=== PATIENT | male | born 1970 | race Caucasian/White ===

== ENCOUNTER 2017-12-16 12:09 | Day surgery (SDC) | payer OTHER ==
[~2017-12-16] VITALS: Ht 182.9 cm; Wt 98.9 kg
--- NOTE | 2017-12-16 15:16 | NUR ---
12/16/17 1516 Richa Coombs 1503 PT ARRIVED IN PACU SLEEPY WITH NO C/O'S. 1510 DR AT BEDSIDE TALKING TO PT. 1514 OXYGEN REMOVED. SATS 97% ON RA.
--- NOTE | 2017-12-17 08:49 | OR ---
[facility] [address] [place], [place] [address] Signed DATE OF OPERATION: 12/16/2017 SURGEON: Valorie Brooks MD PREOPERATIVE DIAGNOSES: 1. Episodic rectal bleeding. 2. Family history of colon cancer in grandfather at age 39 and polyps in mother. POSTOPERATIVE DIAGNOSIS: Polyps x5. PROCEDURE: Total colonoscopy to cecum with snare polypectomy x3 and cold morcellation polypectomy x2. ANESTHESIA: Intravenous sedation, fentanyl 150 mcg, and Versed 9 mg. INDICATION: This 47-year-old white man is patient of Dr. Daly. He works for [employer]. He has had episodic diarrhea and occasional rectal bleeding long-standing. He does have family history of colon cancer in a grandfather at age 39, who had recurrent disease. Additionally, his mother is noted to have polyps. He is admitted at this time to undergo colonoscopy understanding risks of bleeding, infection, and perforation. FINDINGS: The prep was excellent. Complete colonoscopy was undertaken to the cecum without question. There were five polyps in total that were excised, two are relatively large greater than a cm in size. The others were smaller. DESCRIPTION OF PROCEDURE: The patient was brought to the endoscopy suite and placed in lateral decubitus position, given intravenous sedation to the point of slurred speech and nystagmus. Digital rectal examination was normal. An Olympus video colonoscope was passed in the rectum and manipulated throughout the colon noting a relatively large polyp in the right transverse colon. The scope was advanced beyond this ultimately to the cecum. The ileocecal valve and appendiceal orifice were normal. Photographs were taken. Scope was carefully withdrawn. At the hepatic flexure, a small polyp that was adenomatous in appearance was noted. This was Electronically Signed By: VALORIE BROOKS MD 12/17/17 0849 PATIENT NAME: KAYCE SHERMAN JR OPERATIVE REPORT DATE OF : 66 REPORT #: [id number] PHYSICIAN: VALORIE BROOKS MD PCP: ELIZABETH DALY MD REPORT IS CONFIDENTIAL AND NOT TO BE RELEASED WITHOUT AUTHORIZATION [facility] [address] [place], [place] [address] Signed excised with cold morcellation technique. Another polyp somewhat large was excised with cold snare technique. Both were passed for pathology. Scope was withdrawn in the right transverse colon. There was a small polyp that was sessile. This was excised with hot snare polypectomy technique and another few cm away similarly excised. Both were greater than a cm in size. The polyps were noted to be displaced distalward and were not readily visible at that moment. The scope was withdrawn. In the left transverse colon, the other small sessile polyp was noted. This was excised with hot snare technique without problem. Further withdrawal of scope showed all of the polyps that had not yet been retrieved and they were gathered with a Jones net and withdrawn upon withdrawal of the scope. The polyps that were excised were offloaded. The scope reintroduced and passed up to the transverse colon once again and careful withdrawal of scope showed no additional polyps. Retroflexed view was normal. Scope was removed. The patient was taken to recovery room in good condition. CONCLUDING DIAGNOSIS: Polyps x5. PLAN: Recommend repeat colonoscopy in one year due to the number of polyps and configuration of polyps and family history. If at that time there are no polyps, then he can go several years without surveillance colonoscopy. Valorie Brooks MD JM/MODL /[id number] cc: Elizabeth Daly MD Copies: ELIZABETH DALY MD ~ Electronically Signed By: VALORIE BROOKS MD 12/17/17 0849 PATIENT NAME: DORIFLAKITOTYLER BYRDKAYCE PAUL OPERATIVE REPORT DATE OF : 66 REPORT #: [id number] PHYSICIAN: VALORIE BROOKS MD PCP: ELIZABETH DALY MD REPORT IS CONFIDENTIAL AND NOT TO BE RELEASED WITHOUT AUTHORIZATION
== END 2017-12-16 15:40 | disposition home or self-care (01) ==
LOC: DS 12:09 → OPS 12:09
PROVIDERS: Surgery
PROC: 0DBL8ZZ Excision of Transverse Colon, Via Natural or Artificial Opening Endoscopic (ICD-10-PCS; principal; 2017-12-16 13:00)
DX: D12.3 Benign neoplasm of transverse colon (principal); Z80.0 Family history of malignant neoplasm of digestive organs
CPT/HCPCS: 99153; G0500; J2250; J3010; J7120

== ENCOUNTER 2019-06-11 15:31 | Emergency (ER) | payer OTHER ==
[~2019-06-11] VITALS: Ht 182.9 cm; Wt 98.9 kg
--- OUTSIDE RECORDS SUMMARY | ~2019-06-11 | XMS | Clinical Summary ---
Demographics + + + | Address | [address] | | | [place] [address] | + + + | Home Phone | | + + + | Preferred Language | Unknown | + + + | Marital Status | | + + + | Anabaptism Affiliation | Unknown | + + + | Race | Unknown | + + + | Ethnic Group | Unknown | + + + Author + + + | Author | [facility] | | | and [place] | + + + | Organization | [facility] | | | and [place] | + + + | Address | Unknown | + + + | Phone | Unavailable | + + + Support + + +---------+ + | Name | Relationship | Address | Phone | + + +---------+ + | Susie Stewart | ECON | Unknown | | + + +---------+ + Care Team Providers + +------+ + | Care Health Data Administrator Name | Role | Phone | + +------+ + | Nikki Mathews MD | PCP | | + +------+ + Allergies No Known Allergies Medications + + + +---------+------+------+-------+ | Medication | Sig | Dispensed | Refills | Star | End | Statu | | | | | | t | Date | s | | | | | | Date | | | + + + +---------+------+------+-------+ | mupirocin | Apply topically 3 | | 0 | 01/2 | | Activ | | (BACTROBAN) 2% | times daily. | | | 0/20 | | e | | ointment | | | | 15 | | | + + + +---------+------+------+-------+ Active Problems Not on file Encounters +--------+ + + + + | Date | Type | Specialty | Care Team | Description | +--------+ + + + + | 05/24/ | Abstract | Physical Medicine | Provider, | | | 2020 | | and Rehabilitation | [facility] | | +--------+ + + + + from Last 3 Months Family History + + +------+ + | Medical History | Relation | Name | Comments | + + +------+ + | Hypertension | Father | | | + + +------+ + | Other (see comment) | Father | | Menniere's Disease, Vertigo | + + +------+ + | Stroke | Father | | | + + +------+ + | Prostate cancer | Maternal | | | | | Grandfath | | | | | er | | | + + +------+ + | No known problems | Maternal | | | | | Grandmoth | | | | | er | | | + + +------+ + | Colon polyps | Mother | | | + + +------+ + | Colon cancer | Paternal | | | | | Grandfath | | | | | er | | | + + +------+ + | Diabetes | Paternal | | | | | Grandfath | | | | | er | | | + + +------+ + | No known problems | Paternal | | | | | Grandmoth | | | | | er | | | + + +------+ + | No known problems | Sister | | | + + +------+ + + +------+--------+ + | Relation | Name | Status | Comments | + +------+--------+ + | Father | | | | + +------+--------+ + | Maternal Grandfather | | | | + +------+--------+ + | Maternal Grandmother | | | | + +------+--------+ + | Mother | | | | + +------+--------+ + | Paternal Grandfather | | | | + +------+--------+ + | Paternal Grandmother | | | | + +------+--------+ + | Sister | | Alive | | + +------+--------+ + Social History + +-------+ +--------+------+ | Tobacco Use | Types | Packs/Day | Years | Date | | | | | Used | | + +-------+ +--------+------+ | Never Smoker | | | | | + +-------+ +--------+------+ + +---+---+---+ | Smokeless Tobacco: | | | | | Never Used | | | | + +---+---+---+ + + + + + | Alcohol Use | Drinks/Week | oz/Week | Comments | + + + + + | Yes | 1-2 Cans of beer | 1.0 - 2.0 | Occasionally | + + + + + + + + | Sex Assigned at | Date Recorded | | | | + + + | Not on file | | + + + + + + + | Job Start Date | Occupation | Industry | + + + + | Not on file | Not on file | Not on file | + + + + + + + + | Travel History | Travel Start | Travel End | + + + + + + | No recent travel history available. | + + Last Filed Vital Signs Not on file Plan of Treatment + + + + + | Health Maintenance | Due Date | Last Done | Comments | + + + + + | Vaccine: | | | | | Dtap/Tdap/Td (1 - | 9 | | | | Tdap) | | | | + + + + + | Vaccine: Zoster (1 | | | | | of 2) | 8 | | | + + + + + | Vaccine: Influenza | | | | | (Season Ended) | 0 | | | + + + + + | Colorectal Cancer | | 12/16/2017 | | | Screening | 8 | | | | (Colonoscopy) | | | | + + + + + Results Not on filefrom Last 3 Months Insurance +---------+--------+ +--------+ + +--------+ | Payer | Benefi | Subscriber | Effect | Phone | Address | Type | | | t Plan | ID | roberto | | | | | | / | | Dates | | | | | | Group | | | | | | +---------+--------+ +--------+ + +--------+ | MODA | MODA | [id number] | | [phone] | [address] | PPO | | | [place] | | [phone] | | | | Y PPO | | esent | | [place], | | | | | | | | [place] [address] | | +---------+--------+ +--------+ + +--------+ | | [employer]IC[employer] | [id number] | 02/10/19 | [phone] | | Indemn | | | [address] WEST | | 18-Pre | 0 | | ity | | | HNFS | | sent | | | | +---------+--------+ +--------+ + +--------+ + +--------+ +--------+ + + | Guarantor Name | Accoun | Relation to | Date | Phone | Billing Address | | | t Type | Patient | of | | | | | | | | | | + +--------+ +--------+ + + | Antonio Franklin | Person | Self [birth year] | [address] | | | al/Fam | | 1970 | [phone] | [place] [address] | | | [place] | | | 6 (Home) | | + +--------+ +--------+ + + Advance Directives + + + + + | Type | Date Recorded | Patient | Explanation | | | | Banquet Director | | + + + + + | Power of | | | | | Drivers' Cash Clerk | | | | + + + + + | Advance | | | | | Directive | | | | + + + + +"
--- OUTSIDE RECORDS SUMMARY | ~2019-06-11 | XMS | Encounter Summary ---
Demographics + + + | Address | [address] | | | [place] [address] | + + + | Home Phone | | + + + | Preferred Language | Unknown | + + + | Marital Status | | + + + | Bahai Affiliation | Unknown | + + + | Race | Unknown | + + + | Ethnic Group | Unknown | + + + Author + + + | Author | [facility] | | | and [place] | + + + | Organization | [facility] | | | and [...] Team Providers + +------+ + | Care Bat Boy/Girl Name | Role | Phone | + +------+ + | Nikki Mathwes MD | PCP | | + +------+ + Encounter Details +--------+ + + + + | Date | Type | Department | Care Team | Description | +--------+ + + + + | 05/24/ | Abstract | [facility] | Provider, | | | 2019 | | PH[address]SIATRY [address] | [address] [address] | | | | | [address] | [place] | | | | | [place] | [place] [address] | | | | | [phone] | | | | | | [phone] | | | +--------+ + + + + Social History + +-------+ +--------+------+ | [...] recent travel history available. | + + documented as of this encounter Plan of Treatment Not on filedocumented as of this encounter Visit Diagnoses Not on filedocumented in this encounter"
--- OUTSIDE RECORDS SUMMARY | ~2019-06-11 | XMS | Encounter Summary ---
Demographics + + + | Address | [address] | | | [place] [address] | + + + | Home Phone | | + + + | Preferred Language | Unknown | + + + | Marital Status | | + + + | Anabaptist Affiliation | Unknown | + + + | Race | Unknown | + + + | Ethnic Group | Unknown | + + + Author + + + | Author | [facility] | | | and [place] | + + + | Organization | [facility] | | | and [...] Team Providers + +------+ + | Care Respiratory Therapy Director Name | Role | Phone | + [...] | PH[address]SIATRY [address] | [address] | | | | | [address] | [place] | | | | | [place] | [place] [address] | | | | | [phone] | | | | | | [phone] | | | +--------+ + + + [...]
--- OUTSIDE RECORDS SUMMARY | ~2019-06-11 | XMS | Clinical Summary ---
Demographics + + + | Address | [address] | | | [place] [address] | + + + | Home Phone | | + + + | Preferred Language | Unknown | + + + | Marital Status | | + + + | Latter-Day Affiliation | Unknown | + + + | Race | Unknown | + + + | Ethnic Group | Unknown | + + + Author + + + | Author | [facility] | | | and [place] | + + + | Organization | [facility] | | | and [place] | [...] Team Providers + +------+ + | Care Executive Candidate Developer Name | Role | Phone | + [...] + +--------+ | MODA | MODA | [id number] | | [phone] | [address] | PPO | | | [place] | | [address] | [phone] | | | | Y PPO | | esent | | [place], | | | | | | | | [place] [address] | | +---------+--------+ +--------+ + +--------+ | | TRICAR | [id number] | 02/10/19 | [phone] | | Indemn [...] | 1970 | [phone] | [place] [address] | | | [place] | | | 6 (Home) | | + +--------+ +--------+ + + Advance Directives + + + + + | Type | Date Recorded | Patient | Explanation | | | | Rubber Mill Operator | | + + + + + | Power of | | | | | Transformation Lead | | | | + + + + + | Advance | | | | | Directive | | | | + + + + +"
[2019-06-11] MEDS ORDERED: NORCO 7.5-3251 EACH PO (16:59)
== END 2019-06-11 17:41 | disposition home or self-care (01) ==
LOC: ED 15:31
DX: S52.502A Unspecified fracture of the lower end of left radius, initial encounter for closed fracture (principal); S52.612A Displaced fracture of left ulna styloid process, initial encounter for closed fracture; S93.401A Sprain of unspecified ligament of right ankle, initial encounter; W10.9XXA Fall (on) (from) unspecified stairs and steps, initial encounter
CPT/HCPCS: 29125; 73110; 73610; 99283-25; A9270

== ENCOUNTER 2020-08-23 18:16 | Emergency (ER) | payer BC ==
[~2020-08-23] VITALS: Ht 182.9 cm; Wt 97.5 kg
[~2020-08-23 18:16] MED LIST: NORCO 7.5-3251 EACH PO
[2020-08-23] MEDS ORDERED: VITAMIN C500 M1 PO (18:30)
[2020-08-23] MEDS ORDERED: VITAMIN D310 MC4 (18:30)
[2020-08-23] MEDS ORDERED: ELDERBERRY-VIT1 EACH PO (18:31)
[2020-08-23] MEDS ORDERED: ZINC50 M1 PO (18:31)
[2020-08-23] MEDS ORDERED: HYDROXYCHLOROQ200 MG PO (19:11)
[2020-08-23] MEDS ORDERED: PROVENTIL HFA6.7 GM INH (20:30)
[2020-08-23] MEDS ORDERED: ZOFRAN4 MG PO (20:30)
--- NOTE | 2020-08-24 10:29 | EKG ---
[facility] [address] [facility] [place], [place] [address] Signed Normal sinus rhythm Prolonged QT Abnormal ECG No previous ECGs available Confirmed by SREEDHAR HU DO ([id number]) on 08/24/2020 10:29:03 AM Electronically Signed By: SREEDHAR HU DO 08/24/20 1029 PATIENT NAME: DORICELESTINAKAYCE JR Electrocardiogram DATE OF : 66 PHYSICIAN: SREEDHAR HU DO REPORT #: [id number] REPORT IS CONFIDENTIAL AND NOT TO BE RELEASED WITHOUT AUTHORIZATION
== END 2020-08-23 21:02 | disposition home or self-care (01) ==
LOC: ED 18:16
DX: U07.1 COVID-19 (principal); J12.82 Pneumonia due to coronavirus disease 2019; Z79.899 Other long term (current) drug therapy
CPT/HCPCS: 71045; 80053; 83735; 84484; 85025; 93005; 93010; 94640; 99285-25

== ENCOUNTER 2023-03-18 09:18 | Day surgery (SDC) | payer OTHER ==
[~2023-03-18] VITALS: Ht 182.9 cm; Wt 100.9 kg
[~2023-03-18 09:18] MED LIST changes: +ELDERBERRY-VIT1 EACH PO; +HYDROXYCHLOROQ200 MG PO; +IBLOOD GLUCOSE TEST STRIP 1 EA TEST VI PRN; +LACTATED RINGER'S 1,000 ML IV SCH; +LIDOCAINE HCL 1% 5 ML SDV INJ ONE; +MIDAZOLAM HCL 5 MG/5 ML VIAL IV PRN; +PREDNISONE20 MG PO; +PROVENTIL HFA6.7 GM INH; +VITAMIN C500 M1 PO; +VITAMIN D310 MC4; +ZINC50 M1 PO; +ZOFRAN4 MG PO; +fentaNYL citrate 100 MCG/2 ML VIAL IV PRN
[2023-03-18 10:21] VITALS: BP 130/90
[2023-03-18] MEDS ORDERED: MIDAZOLAM HCL 5 MG/5 ML VIAL ONE (10:33)
[2023-03-18] MEDS ORDERED: fentaNYL citrate 100 MCG/2 ML VIAL ONE (10:33)
[2023-03-18] MEDS ORDERED: CEFAZOLIN SODIUM 2 GM/20 ML SYR ONE (10:46)
[2023-03-18] MEDS ORDERED: CEFAZOLIN SODIUM 2 GM/20 ML SYR IV SCH (10:50)
--- NOTE | 2023-03-18 11:48 | NUR ---
03/18/23 1148 Sheets,Sangeeta 1139 PT ARRIVED TO PACU ON 3L VIA NC, PT AWAKE TALKING TO RN. PT ENCOURAGED TO PASS GAS/AIR. PT REPORTS SOME GAS PAIN AND EDUCATION GIVEN.
[2023-03-18 12:18] VITALS: BP 138/97
--- NOTE | 2023-03-18 15:37 | OR ---
[facility] [address] [place], [place] [address] Signed DATE OF OPERATION: 03/18/2023 SURGEON: Jamshid Hopkins MD PREOPERATIVE DIAGNOSES: 1. Chronic intermittent rectal bleeding and diarrhea. 2. Maternal grandfather with colon cancer. 3. Mother with colon polyps. 4. Paternal grandfather with colon cancer at age 39. 5. Personal history of five tubular adenomatous polyps removed in 2018 at the age of 47, two of which were greater than 10 mm. POSTOPERATIVE DIAGNOSES: 1. 5 mm sessile polyp in hepatic flexure. 2. 7 mm pedunculated polyp in hepatic flexure (snare). 3. Base of hepatic flexure polyp. 4. 6 mm polyp at 68 cm in left colon (snare). 5. 8 mm pedunculated polyp at 38 cm in left colon (snare). 6. A 15 x 20 mm pedunculated polyp at 32 cm in sigmoid colon (tattoo, clipped x1). 7. Minimal internal hemorrhoids. PROCEDURES: Colonoscopy with snare polypectomy, hot biopsy, injection of tattoo and clipping x1. ESTIMATED BLOOD LOSS: Minimal. INDICATIONS: Grey is a 53-year-old gentleman, asked to see me for a followup colonoscopy. We know his maternal grandfather had colon cancer. Mother had colonic polyps. His paternal grandfather had colon cancer at age 39. Grey underwent his initial colonoscopy in 2018 at he age of 47 [address] Falk. Five tubular adenomatous polyps were removed. Two of those polyps were greater than 10 mm. He also has chronic intermittent rectal bleeding and some diarrhea. Dr. Falk asked him to come back in one year. However, he was sidetracked by SMITHA and later he had to have the mitral valve replaced at [facility] up in [place], [place]. That valve also contains metal. Therefore, we did give him some Ancef today before we started. We asked Grey and his to check in with his heart surgeon to see whether or not he needs to continue prophylactic antibiotics. He had done well with Versed and fentanyl in the past. In the office, I gave him a pamphlet on colonoscopy. We had reviewed the nature of the test. There is Electronically Signed By: JAMSHID HOPKINS MD 03/18/23 1537 PATIENT NAME: GREY SHERMAN JR OPERATIVE REPORT DATE OF : 66 REPORT #: [id number] PHYSICIAN: JAMSHID HOPKINS MD PCP: NO PRIMARY CARE PHYSICIAN REPORT IS CONFIDENTIAL AND NOT TO BE RELEASED WITHOUT AUTHORIZATION [facility] [address] [place], [place] [address] Signed risk including, but not limited to gas bloating, crampy abdominal pain, bleeding, perforation requiring surgery, and missed diagnosis. We also reviewed the written instructions for the bowel prep line by line. Amazingly, he takes no medications. He also understands the need for IV conscious sedation. He had expressed understanding and wished to proceed. DESCRIPTION OF PROCEDURE: Grey was taken into our endoscopy suite and placed in the left lateral decubitus position. He was given a total of 8 mg of Versed and 175 mcg of fentanyl to cover the case. He was given 2 g of Ancef before we started because of mitral valve replacement surgery. A digital rectal exam was performed. There were no external hemorrhoids. He had good sphincter tone. There were really no masses. The adult colonoscope was introduced, advanced all around into the cecum under direct visualization of the camera without difficulty. It took just a little bit of abdominal compression in order to get the scope directly into the cecum itself. His prep was quite excellent. We could easily see the appendiceal orifice and the ileocecal valve. The scope was then slowly withdrawn. We took pictures throughout for photodocumentation. The above-mentioned polyps were all removed as stated above. Most were divided with the snare and trap. He had a fairly large polyp back at 32 cm. It bled just a little bit at the base. We cauterized around the base, injected tattoo underneath the base and then we clipped the base directly with good hemostasis. We did not see any diverticulosis. The rectum was unremarkable. Upon retroflexion of the scope, he had very minimal internal hemorrhoid tissue. After this, the gas was suctioned out and the colonoscope removed. Grey tolerated the procedure quite well. RECOMMENDATIONS: I will see Grey back in my office in 7 to 14 days to review his results. He should consider a shorter interval in the future, say 1 to 3 years depending on pathology results. Jamshid Hopkins MD ALB/MODL /[id number] cc: [facility] Electronically Signed By: JAMSHID HOPKINS MD 03/18/23 1537 PATIENT NAME: GREY SHERMAN PAUL OPERATIVE REPORT DATE OF : 66 REPORT #: [id number] PHYSICIAN: JAMSHID HOPKINS MD PCP: NO PRIMARY CARE PHYSICIAN REPORT IS CONFIDENTIAL AND NOT TO BE RELEASED WITHOUT AUTHORIZATION [address] [place], [place] [address] Signed Jamshid Hopkins MD Copies: JAMSHID HOPKINS MD ~ Electronically Signed By: JAMSHID HOPKINS MD 03/18/23 1537 PATIENT NAME: DORICELESTINAGREY JR OPERATIVE REPORT DATE OF : 66 REPORT #: [id number] PHYSICIAN: JAMSHID HOPKINS MD PCP: NO PRIMARY CARE PHYSICIAN REPORT IS CONFIDENTIAL AND NOT TO BE RELEASED WITHOUT AUTHORIZATION
--- NOTE | 2023-03-20 16:52 | PATH ---
[facility] [address] [place], [place] [address] Signed SPECIMEN(S): A HEPATIC FLEXURE COLON POLYP AT 78 CM SPECIMEN(S): B HEPATIC FLEXURE COLON POLYP #2 SPECIMEN(S): C HEPATIC FLEXURE COLON BASE POLYP SPECIMEN(S): D DESCENDING COLON POLYP AT 68 CM SPECIMEN(S): E DESCENDING COLON POLYP AT 38 CM SPECIMEN(S): F SIGMOID POLYP AT 32 CM SPECIMEN SOURCE: A. HEPATIC FLEXURE COLON POLYP AT 78 CM B. HEPATIC FLEXURE COLON POLYP #2 C. HEPATIC FLEXURE COLON BASE POLYP D. DESCENDING COLON POLYP AT 68 CM E. DESCENDING COLON POLYP AT 38 CM F. SIGMOID POLYP AT 32 CM CLINICAL HISTORY: History of polyp-family history, colon cancer, chronic diarrhea FINAL PATHOLOGIC DIAGNOSIS: A. Hepatic flexure colon polyp at 78 cm: - Tubular adenoma (two fragments). B. Hepatic flexure colon polyp No. 2: - Tubular adenoma (three fragments). C. Hepatic flexure colon base polyp: - Tubular adenoma (one fragment). D. Descending colon polyp at 68 cm: - Tubular adenoma (one fragment). E. Descending colon polyp at 38 cm: - Tubulovillous adenoma (three fragments). F. Sigmoid polyp at 32 cm: - Tubulovillous adenoma extending to the inked polyp stalk base. JVR:clv MICROSCOPIC EXAMINATION: Histologic sections of all submitted blocks are examined by light microscopy. These findings, together with the gross examination, support the pathologic diagnosis. GROSS DESCRIPTION: A. The specimen, labeled and designated "Venuaulnier, hepatic flexure colon polyp at 78 cm, #1," is received in formalin and consists of two cruz soft PATIENT NAME: KAYCE SHERMAN JR PATHOLOGY DATE OF : 66 REPORT #: [id number] PHYSICIAN: [facility] PATHOLOGY PCP: NO PRIMARY CARE PHYSICIAN REPORT IS CONFIDENTIAL AND NOT TO BE RELEASED WITHOUT AUTHORIZATION [facility] [address] [place], [place] [address] Signed tissue fragments, ranging from 0.2-0.3 cm. Entirely submitted in (A1). B. The specimen, labeled and designated "Desaulnier, hepatic flexure colon polyp #2," is received in formalin and consists of three cruz soft tissue fragments, ranging from 0.5-0.6 cm. Entirely submitted in (B1). C. The specimen, labeled and designated "Desaulnier, hepatic flexure colon base polyp," is received in formalin and consists of one cruz soft tissue fragment, 0.3 cm. Entirely submitted in (C1). D. The specimen, labeled and designated "Desaulnier, descending colon polyp at 68 cm," is received in formalin and consists of one cruz soft tissue fragment, 0.2 cm. Entirely submitted in (D1). E. The specimen, labeled and designated "Desaulnier, descending colon polyp at 38 cm," is received in formalin and consists of two cruz soft tissue fragments, ranging from 0.5-0.7 cm. Entirely submitted in (E1). F. The specimen, labeled and designated "Desaulnier, sigmoid polyp at 32 cm," is received in formalin and consists of a bosselated polyp of red-brown soft tissue (2.2 x 1.3 x 1.3 cm). The resection margin is inked blue, and the tissue is trisected to reveal red-brown to cruz soft cut surfaces. The specimen is submitted entirely in cassette (F1-F2). VB (under the direct supervision of a pathologist) The Gross Description was prepared using a voice recognition system. The report was reviewed for accuracy; however, sound-alike word errors, addition and/or deletions may occur. If there is any question about this report, please contact Client Services. PERFORMING LABORATORY: Technical component was performed by [facility], [address] [place] [id number] (CLIA# [id number]). Professional interpretation was performed by [facility], [address] [place] [id number] (CLIA#: [id number]). Diagnostician: Tino Deluna MD Pathologist Electronically Signed 03/20/2023 Copies: PATIENT NAME: KAYCE SHERMAN PATHOLOGY DATE OF : 66 REPORT #: [id number] PHYSICIAN: [facility] PCP: NO PRIMARY CARE PHYSICIAN REPORT IS CONFIDENTIAL AND NOT TO BE RELEASED WITHOUT AUTHORIZATION [address] [address] Signed ~ PATIENT NAME: KAYCE SHERMAN JR PATHOLOGY DATE OF : 66 REPORT #: [id number] PHYSICIAN: SERGEY PATHOLOGY PCP: NO PRIMARY CARE PHYSICIAN REPORT IS CONFIDENTIAL AND NOT TO BE RELEASED WITHOUT AUTHORIZATION
== END 2023-03-18 12:32 | disposition home or self-care (01) ==
LOC: DS 09:18
PROVIDERS: ATTEND Colon & Rectal Surgery
PROC: 0DBL8ZZ Excision of Transverse Colon, Via Natural or Artificial Opening Endoscopic (ICD-10-PCS; 2023-03-18)
PROC: 0DBN8ZZ Excision of Sigmoid Colon, Via Natural or Artificial Opening Endoscopic (ICD-10-PCS; 2023-03-18)
PROC: 0DBG8ZZ Excision of Left Large Intestine, Via Natural or Artificial Opening Endoscopic (ICD-10-PCS; principal; 2023-03-18 10:30)
DX: K52.9 Noninfective gastroenteritis and colitis, unspecified (principal); D12.3 Benign neoplasm of transverse colon; D12.4 Benign neoplasm of descending colon; D12.5 Benign neoplasm of sigmoid colon; K64.8 Other hemorrhoids; E78.5 Hyperlipidemia, unspecified; I10 Essential (primary) hypertension; Z80.0 Family history of malignant neoplasm of digestive organs; Z83.719 Family history of colon polyps, unspecified; Z86.010 Personal history of colon polyps
CPT/HCPCS: 88305; 99153; G0500; J0690; J2250; J3010; J7121